=== PATIENT | female | born 1960 | race African-American/Black ===

== ENCOUNTER 2018-03-28 00:46 | Emergency (ER) | payer MEDICAID ==
[~2018-03-28] VITALS: Ht 167.6 cm; Wt 97.5 kg
[2018-03-28] MEDS ORDERED: Morphine Sulfate 4mg/ml Inj (IV/IM USE ONLY) IVP ONE (01:00)
[2018-03-28] MEDS ORDERED: Isovue-370 150ml vial INJ PRN (01:00)
[2018-03-28] MEDS ORDERED: Albuterol ud Inhalation HHN ONE (01:00)
[2018-03-28 01:22] LABS: BASOPHILS % (AUTO) 1.1 % (0.0-2.0); EOSINOPHILS % (AUTO) 0.4 % (0.0-3.0); HEMOGLOBIN 12.7 G/DL (12.0-16.0); LYMPHOCYTES % (AUTO) 14.9 % (20.0-45.0); MEAN CORPUSCULAR VOLUME 90 FL (80-99); NEUTROPHILS % (AUTO) 76.7 % (45.0-75.0); PLATELET COUNT 248 K/UL (150-450); RED BLOOD COUNT 4.42 M/UL (4.20-5.40); RED CELL DISTRIBUTION WIDTH 16.5 % (11.6-14.8)
[2018-03-28 01:26] VITALS: BP 76/50
[2018-03-28] MEDS ORDERED: NS 250 ML IVPB ONE (01:30)
[2018-03-28 01:34] LABS: INR 1.2 (0.9-1.1)
[2018-03-28 01:50] LABS: ALANINE AMINOTRANSFERASE 16 U/L (12-78); ALBUMIN 2.9 G/DL (3.4-5.0); ALBUMIN/GLOBULIN RATIO 0.5 (1.0-2.7); ALKALINE PHOSPHATASE 151 U/L (46-116); ANION GAP 13 mmol/L (5-15); ASPARTATE AMINO TRANSFERASE 28 U/L (15-37); BILIRUBIN,TOTAL 1.5 MG/DL (0.2-1.0); BLOOD UREA NITROGEN 45 mg/dL (7-18); CALCIUM 9.5 MG/DL (8.5-10.1); CARBON DIOXIDE 24 MMOL/L (21-32); CHLORIDE 97 MMOL/L (98-107); CREATINE KINASE 42 U/L (26-308); CREATININE 2.4 MG/DL (0.55-1.30); SODIUM 134 MMOL/L (136-145)
[2018-03-28] MEDS ORDERED: Sodium Chloride 500ML 500 ML IV ONE (01:59)
[2018-03-28] MEDS ORDERED: Calcium Gluconate 1gm/10ml vial IVP ONE (02:00)
[2018-03-28] MEDS ORDERED: Sodium Polystyrene Sulfonate 15gm Powder RECTAL ONE (02:00)
--- NOTE | 2018-03-28 02:05 | Emergency Room Report ---
History of Present Illness General Chief Complaint: Dyspnea/Respdistress Source: Patient, EMS Present Illness HPI Patient presents with dyspnea. According to paramedics has had dyspnea for 3 days after discharge 1 day befor. Hypotensive in the field and 100 ml NS given with some alleged improvement in BP. Denies chest pain. No fever or cough. Edema of LE without pain in calves. Will not answer most questions. Recent discharge from hospital for CHF. Other details unavailable. H/O cardiac stents. H/O diabetes. Allergies: Coded Allergies: No Known Allergies (Unverified , 03/28/18) Patient History Limited by: medical condition Past Medical History: see triage record Past Surgical History: PTCA Social History: Denies: smoking Social History Narrative from home Reviewed Nursing Documentation: PMH: Agreed; PSxH: Agreed Nursing Documentation-PMH Hx Cardiac Problems: Yes - Stents Hx Hypertension: Yes Hx Diabetes: Yes Review of Systems All Other Systems: limited Physical Exam Vital Signs Date Time Temp Pulse Resp B/P (MAP) Pulse Ox O2 Delivery O2 Flow Rate FiO2 03/28/18 00:57 96.8 80 28 167/80 93 Room Air 03/28/18 01:15 2.0 28 Sp02 EP Interpretation: reviewed, abnormal - interpreted as low by me General Appearance: severe distress - tripod Eyes: bilateral eye PERRL, bilateral eye conjunctivae pale ENT: moist mucus membranes Neck: supple Respiratory: respiratory distress, wheezing, expiration Cardiovascular #1: regular rate, rhythm, no JVD, edema - bilat 1+ pitting LE bilat Cardiovascular #2: 2+ radial (L) Gastrointestinal: non tender, soft, decreased bowel sounds Rectal: heme negative stool Genitourinary: no CVA tenderness Neurologic: alert, oriented x3, motor strength/tone normal, sensory intact Psychiatric: anxious Skin: pallor Procedures Critical Care Time Critical Care Time Total Critical Care Time: 120 min bedside evaluation and treatment excludes procedures (EKG, intubation, CVP, code blue). Reason for critical care: respiratory distress/failure, hypotension, hyperkalemia, NSTEMI, renal failure, repeat evaluations, code blue Possible complications: hypotension, hypertension, [place], shock, arrhythmias, metabolic acidosis, end organ damage, respiratory failure. Interventions: Intubation, CVP, repeated evaluations, code blue, attempt NG/OG Course: Patient presented in distress with dyspnea and hypotension. Please see medical course and code blue notes. Continued deterioration with repeated evaluations resulting in cardiac arrest. Resuscitation unsuccessful. Contact family and discussed when arrived to ED. Consultations: nursing staff, EMS, family, RT Performed by: Dr. Bautista Patient Central Line Central Line : Consent: Emergent Central Line Lumen: triple Maximal Sterile Barrier Tech: yes cap, yes mask, yes sterile gown, yes sterile gloves, yes large sterile sheet, yes hand hygiene, yes chlorhexidine prep No Max Barrier Tech Because: emergency insertion Central Line Postion: femoral (R) Anesthesia: none Complications: none Central Line Post Position: sutured, good blood return Attempts: One Patient Tolerated: Well Complications: None Progress EBL 7 cc. CPR/Code Blue CPR/Code Blue Narrative Patient with bradycardia and hypotension. Push dose epi and full epi given. Still bradycardic and hypotensive. Code called at 3:31. CPR performed by RT, techs and myself. Directly supervised by me. Epi given. Atropine for bradycardia without response. Bicarb given for elevated K. Continued Epi every 3-5 minutes. ABG with mixed acidosis. Bicarb given. Ultrasound with ineffective myocardial contractility. No evidence of tension pneumothorax, pericardial effusion. Epi drip begun with weak femoral pulses transiently. Pulses lost and bradycardia (20s). Atropine repeated. Patient demonstrates cardiopulmonary unresponsiveness and pronounced at 4:11. Intubation Intubation : Consent: Emergent Intubation Method: orotracheal Tube Size (cm): 7.5 Medications: Etomidate, Versed Breath Sounds after Intubation: equal Intubation Complications: no complications Post Intubation Xray: No Attempts: One Patient Tolerated: Well Complications: Other - biting teeth Progress Patient with respiratory distress. Discussed intubation with patient. After 10 mg etomidate, teeth clenching. Additional 5 mg and able to intubate. Biting tongue - Rocuronium 10 mg given and 1 mg Versed. Able to place bite block. Medical Decision Making Diagnostic Impression: Primary Impression: Respiratory failure Qualified Codes: J96.01 - Acute respiratory failure with hypoxia; J96.02 - Acute respiratory failure with hypercapnia Additional Impressions: Hypotension Qualified Codes: I95.89 - Other hypotension Cardiopulmonary arrest Acute renal failure Qualified Codes: N17.9 - Acute kidney failure, unspecified Hyperkalemia ER Course Patient with dyspnea and hypotension in the field. DDX: AMI, PE, sepsis, CHF, GI bleed amongst others. Evaluation with EKG, CXR, CT angio, labs including BC and lactate. With h/o CHF- judicious fluid administration. Albuterol ordered as some bronchospasm. ABG ordered. Lasix, zofran and morphine ordered. Attempt to get records from recent hospitalization. Not tachycardic and BP better. EKG with ST inversions multiple leads. No STEMI. [place] denies patient was there. Attempting to find where prior hospitalization was and d/c dx. ABG with hypoxia, resp alkalosis. Not need intubation at this time, though still with resp difficulty. BP dropped. Fluid boluses with transient improvement. CXR with increased saeed R base, possible infiltrate vs pulmonary infarct. Venous congestion suggests CHF. Labs with normal WBC, elevated K and renal failure, elevated BNP. H/H normal which excludes GI bleed. Troponin elevated ( NSTEMI). With elevated lactate, consideration for sepsis - antibiotics ordered to cover possible pneumonia. With elevated BNP unable to give sepsis bolus. Calcium and Kayexelate ordered for elevated K. Unable to perform CTA due to inability to lay down and renal failure. Add D dimer as unable to perform CTA. Patient appears to be tiring with resp effort. Discussed need for intubation with patient who agrees. intubated 2:40. Etomidate total 15 mg and then Rocuronium as biting tongue. BP improved after intubation. BS bilat. Vent and CXR ordered. Attempt Versed drip - unable. Versed given. Plan for levophed and need for CVP. Attempt to pass NG/OG. Unable due to coiling. D/C attempts as needed CVP as BP again low. CVP inserted with ease. After placement, HR from tachycardia to 70s. BP low. Push dose epi X 2 with transient improvement. HR continued to decrease with hypotension. EPI 0.8 ml given and Code Called at 3:31. Compressions started. (See Code Blue note and sheet.) Considerations during Code: hyperkalemia, tension pneumothorax, PE, [place], pericardial effusion. Treating K with bicarb (had lasix, calcium and albuterol) . BS bilat and no tracheal deviation. Ultrasound excludes pericardial effusion. Demonstrates ineffective contractility. Epi drip begun with transient ROSC. Pulses again lost with HR 20s. PEA. Patient demonstrates cardiopulmonary unresponsiveness. Pronounced 4:11. Attempted contact Mother - message left to call ED. Discussed with daughter who came to ED. Also discussed with son by phone at request of daughter. Laboratory Tests Test 03/28/18 01:09 03/28/18 01:18 03/28/18 02:55 White Blood Count 8.0 K/UL (4.8-10.8) Red Blood Count 4.42 M/UL (4.20-5.40) Hemoglobin 12.7 G/DL (12.0-16.0) Hematocrit 40.0 % (37.0-47.0) Mean Corpuscular Volume 90 FL (80-99) Mean Corpuscular Hemoglobin 28.7 PG (27.0-31.0) Mean Corpuscular Hemoglobin Concent 31.7 G/DL (32.0-36.0) L Red Cell Distribution Width 16.5 % (11.6-14.8) H Platelet Count 248 K/UL (150-450) Mean Platelet Volume 6.5 FL (6.5-10.1) Neutrophils (%) (Auto) 76.7 % (45.0-75.0) H Lymphocytes (%) (Auto) 14.9 % (20.0-45.0) L Monocytes (%) (Auto) 7.0 % (1.0-10.0) Eosinophils (%) (Auto) 0.4 % (0.0-3.0) Basophils (%) (Auto) 1.1 % (0.0-2.0) Prothrombin Time 12.5 SEC (9.30-11.50) H Prothrombin Time INR 1.2 (0.9-1.1) H PTT 28 SEC (23-33) D-Dimer 2.10 mg/L FEU (0.00-0.49) H Sodium Level 134 MMOL/L (136-145) L Potassium Level 6.0 MMOL/L (3.5-5.1) *H Chloride Level 97 MMOL/L (98-107) L Carbon Dioxide Level 24 MMOL/L (21-32) Anion Gap 13 mmol/L (5-15) Blood Urea Nitrogen 45 mg/dL (7-18) H Creatinine 2.4 MG/DL (0.55-1.30) H Estimate Glomerular Filtration Rate 25.3 mL/min (>60) Glucose Level 157 MG/DL (74-106) H Lactic Acid Level 4.50 mmol/L (0.4-2.0) H 6.50 mmol/L (0.66-2.22) H Calcium Level 9.5 MG/DL (8.5-10.1) Total Bilirubin 1.5 MG/DL (0.2-1.0) H Direct Bilirubin 1.0 MG/DL (0.0-0.3) H Aspartate Amino Transferase (AST) 28 U/L (15-37) Alanine Aminotransferase (ALT) 16 U/L (12-78) Alkaline Phosphatase 151 U/L (46-116) H Total Creatine Kinase 42 U/L (26-308) Troponin I 0.118 ng/mL (0.000-0.056) Pro-B-Type Natriuretic Peptide 13665 pg/mL (0-125) H Total Protein 8.2 G/DL (6.4-8.2) Albumin 2.9 G/DL (3.4-5.0) L Globulin 5.3 g/dL Albumin/Globulin Ratio 0.5 (1.0-2.7) L Arterial Blood pH 7.464 (7.350-7.450) Arterial Blood Partial Pressure CO2 31.5 mmHg (35.0-45.0) L Arterial Blood Partial Pressure O2 74.3 mmHg (75.0-100.0) L Arterial Blood HCO3 22.1 mmol/L (22.0-26.0) Arterial Blood Oxygen Saturation 94.1 % (95-100) L Arterial Blood Base Excess -0.8 (-2-2) [place] Test Positive EKG Diagnostic Results Rate: normal Rhythm: NSR ST Segments: no acute changes - ST inversion inferiorly Rhythm Strip Diag. Results EP Interpretation: yes Rhythm: no PVC's, no ectopy, other - ST Chest X-Ray Diagnostic Results Chest X-Ray Diagnostic Results : Chest X-Ray Ordered: Yes # of Views/Limited/Complete: 1 View Indication: Shortness of Breath Interpretation: no effusion, no pneumothorax, other - possible RLL infiltrate, pulm HTN/chf Impression: Other Electronically Signed by: Electronically signed by Franck Bautista MD Last Vital Signs Date Time Temp Pulse Resp B/P (MAP) Pulse Ox O2 Delivery O2 Flow Rate FiO2 03/28/18 12:55 0 0 0/0 0 0 03/28/18 05:48 40 03/28/18 01:26 Nasal Cannula 2.0 03/28/18 01:26 96.8 Status: worsened Disposition: Condition: Referrals: [facility],REFERRING (PCP) Franck Bautista MD Mar 28, 2018 02:05
[2018-03-28] MEDS ORDERED: Midazolam 2mg/2ml Inj IVP ONE (02:15)
[2018-03-28] MEDS ORDERED: Midazolam for drip 50 MG in NS 90 ML IV ONE (02:15)
[2018-03-28] MEDS ORDERED: Etomidate 40mg/20ml Inj IV ONE (02:15)
[2018-03-28] MEDS ORDERED: Cefepime HCl 1 GM in D5W 55 ML IVPB ONE (03:00)
[2018-03-28] MEDS ORDERED: EPINEPHrine 1mg/1ml Amp ONE (03:23)
[2018-03-28] MEDS ORDERED: Levophed 4mg/4mL Inj IV ONE (03:25)
[2018-03-28] MEDS ORDERED: Atropine Inj 1mg/10ml Syr ONE (03:29)
[2018-03-28] MEDS ORDERED: EPINEPHRINE ONE (03:54)
[2018-03-28] MEDS ORDERED: DOPamine 400mg/250ml 250 ML IV ONE (04:11)
[2018-03-28 12:55] VITALS: BP 0/0
== END 2018-03-28 12:55 | disposition expired ==
LOC: EDBD 00:46 → EMR 00:59 → EDBEDREQ 01:17 → EDBEDREQSVC 01:55 → EDBEDREQ 01:56 → EDBEDREQSVC 02:06 → CANBEDREQ 07:58 → EMR 12:55
DX: J96.01 Acute respiratory failure with hypoxia (principal); J96.02 Acute respiratory failure with hypercapnia; I95.89 Other hypotension; N17.9 Acute kidney failure, unspecified; E87.5 Hyperkalemia; I46.9 Cardiac arrest, cause unspecified; E11.9 Type 2 diabetes mellitus without complications; I10 Essential (primary) hypertension; Z98.61 Coronary angioplasty status; R00.1 Bradycardia, unspecified
CPT/HCPCS: 31500; 36415; 36600; 71045; 80053; 82248; 82550; 82803; 82962; 83605; 83880; 84484; 85025; 85379; 85610; 85730; 86900; 86901; 87040; 92950; 94002; 94640; 94664; 96361; 96365; 96367; 96375; 99291; 99292; J0171; J0610; J0692; J1265; J1940; J1956; J2250; J2405; Z7502